=== PATIENT | female | born 2000 | race Hispanic/Latino ===

== ENCOUNTER → 2024-09-28 | Outpatient (CLI) | payer BC, SELFPAY ==
[2024-09-28 12:36] LABS: Hematocrit 40.8 % (37-47); Hemoglobin 13.1 g/dL (12.0-15.0); Immature Granulocytes Count 0.020 X10^3/uL (0.0-0.0); Mean Corp Hgb Conc 32.1 g/dL (32-36); Mean Corpuscular Volume 84.6 fL (81-99); Mean Platelet Vol. 11.7 fl (6.2-12.0); NRBC Flagged by Analyzer 0 % (0-5); Platelet Count 273 K/mm3 (150-450); RBC Distribution Width CV 14.3 % (11.6-14.6); RBC Distribution Width SD 43.7 fl (35.1-43.9); Red Blood Count 4.82 M/mm3 (4.2-5.4); White Blood Count 6.5 K/mm3 (4.4-11.0)
[2024-09-28 13:08] LABS: AST(SGOT) 19 U/L (<=31); Alanine Aminotransfer ALT/SGPT 18 U/L (<=34); Albumin, Serum 4.3 g/dL (3.5-5.0); Alkaline Phosphatase 71 U/L (35-104); Anion Gap 10 (5-15); BUN 16 mg/dL (4-19); BUN/Creat Ratio 18.8 RATIO (10-20); Calcium,Total 9.7 mg/dL (7.6-11.0); Carbon Dioxide 26.5 mmol/L (21.0-32.0); Chloride 102 mmol/L (98-108); Follicle Stimulating Hormone 4.3 mIU/mL; Globulin 3.0 g/dL (2.2-4.2); Glucose 95 mg/dL (70-99); Potassium 4.5 mmol/L (3.3-5.1)
[2024-10-03 19:08] LABS: PROLACTIN 11.7 ng/mL (4.8-33.4)
== END | disposition home or self-care (01) ==
PROVIDERS: Referring Provider Nurse Practitioner Family; Visit Provider Nurse Practitioner Family
DX: Z31.9 Encounter for procreative management, unspecified (principal)
CPT/HCPCS: 36415; 80053; 82024; 82627; 82670; 83001; 83002; 83003; 84146; 84402; 84403; 84439; 84443; 85025; 82626

== ENCOUNTER → 2024-10-13 | Outpatient (CLI) | payer BC, OTHER, SELFPAY | END | disposition home or self-care (01) | PROVIDERS: Referring Provider Nurse Practitioner Family; Visit Provider Nurse Practitioner Family | DX: Z31.9 Encounter for procreative management, unspecified (principal) | CPT/HCPCS: 36415 ==

== ENCOUNTER → 2024-10-31 | Outpatient (CLI) | payer BC, OTHER, SELFPAY ==
[2024-11-02 04:07] LABS: PROGESTERONE 7.8 ng/mL (.)
== END | disposition home or self-care (01) ==
PROVIDERS: Nurse Practitioner Family; Visit Provider Nurse Practitioner Women's Health
DX: Z31.9 Encounter for procreative management, unspecified (principal)
CPT/HCPCS: 36415; 84144